=== PATIENT | female | born 1945 | race Caucasian/White ===

== ENCOUNTER 2020-07-22 14:18 | Inpatient (IN) ==
[2020-07-22] MEDS ORDERED: Furosemide 40 MG/4 ML VIAL IVP ONE (14:46)
[2020-07-22] MEDS ORDERED: Nitroglycerin 0.4 MG TAB.SUBL SL ONE (14:47)
[2020-07-22] MEDS: Furosemide 40 MG/4 ML VIAL ONE (14:55)
[2020-07-22 15:06] LABS: Basophils % 0.3 %; Eosinophils # 0.2 K/mcL (0.0-0.6); Eosinophils % 1.8 %; Hematocrit 43.6 % (35.3-44.9); Hemoglobin 14.3 g/dL (11.5-15.4); Immature Granulocytes % 0.3 % (0-4); Lymphocytes # 3.3 K/mcL (0.6-4.6); Lymphocytes % 28.7 %; Mean Corpuscular HGB Conc 32.8 g/dL (31.6-35.5); Mean Corpuscular Hemoglobin 27.6 pg (28.0-33.3); Mean Platelet Volume 10.8 fL (9.4-12.4); Monocytes # 1.1 K/mcL (0.0-1.3); Monocytes % 9.5 %; Neutrophils # 6.8 K/mcL (1.6-8.9); Platelet Count 305 K/mcL (140-400); Red Blood Count 5.19 M/mcL (3.82-4.97); Red Cell Distribution Width 13.4 % (11.5-14.5); Segmented Neutrophils % 59.4 %; White Blood Count 11.5 K/mcL (4.3-11.1)
[2020-07-22 15:18] LABS: BUN/Creatinine Ratio 27 (6-26); Blood Urea Nitrogen 17 mg/dL (8-23); Calcium 9.2 mg/dL (8.6-10.3); Carbon Dioxide 30 mEq/L (23-29); Chloride 94 mEq/L (98-107); Glucose 183 mg/dL (70-105); Osmolality,Calculated 284 (280-300); Potassium 3.3 mEq/L (3.5-5.1); Sodium 134 mEq/L (136-145); eGFR For African Americans > 60 (> 60); eGFR For Non-African Americans > 60 (> 60)
[2020-07-22 15:28] LABS: Troponin I 0.05 ng/mL (< 0.04)
[2020-07-22] MEDS ORDERED: Naloxone 0.4 MG/ML INJ IVP PRN (16:33)
[2020-07-23 01:36] LABS: Basophils % 0.2 %; Eosinophils # 0.1 K/mcL (0.0-0.6); Eosinophils % 1.2 %; Hematocrit 36.2 % (35.3-44.9); Hemoglobin 11.7 g/dL (11.5-15.4); Immature Granulocytes % 0.4 % (0-4); Lymphocytes # 1.6 K/mcL (0.6-4.6); Lymphocytes % 19.2 %; Mean Corpuscular HGB Conc 32.3 g/dL (31.6-35.5); Mean Corpuscular Hemoglobin 26.6 pg (28.0-33.3); Mean Corpuscular Volume 82.3 fL (83.0-100.0); Mean Platelet Volume 10.5 fL (9.4-12.4); Monocytes # 0.7 K/mcL (0.0-1.3); Monocytes % 8.8 %; Neutrophils # 5.8 K/mcL (1.6-8.9); Platelet Count 244 K/mcL (140-400); Red Cell Distribution Width 13.3 % (11.5-14.5); Segmented Neutrophils % 70.2 %; White Blood Count 8.2 K/mcL (4.3-11.1)
[2020-07-23 02:05] LABS: BUN/Creatinine Ratio 26 (6-26); Blood Urea Nitrogen 15 mg/dL (8-23); Calcium 8.7 mg/dL (8.6-10.3); Carbon Dioxide 36 mEq/L (23-29); Chloride 94 mEq/L (98-107); Glucose 108 mg/dL (70-105); Osmolality,Calculated 287 (280-300); Potassium 2.4 mEq/L (3.5-5.1); Sodium 138 mEq/L (136-145); eGFR For African Americans > 60 (> 60); eGFR For Non-African Americans > 60 (> 60)
[2020-07-23] MEDS ORDERED: Potassium Chloride 40 MEQ, Lidocaine 1% 2 ML in 0.9 % Sodium Chloride 500 ML IVPB ONE ×2 (05:45→21:45)
[2020-07-23] MEDS: Furosemide 40 MG/4 ML VIAL IVP SCH (08:24)
[2020-07-23] MEDS: Spironolactone 25 MG TABLET PO SCH (08:24)
[2020-07-23] MEDS ORDERED: Morphine Sulfate Oral CONC 10 MG/0.5 ML ORAL.SYG SL ONE (11:01)
[2020-07-23] MEDS ORDERED: Morphine Sulfate 2 MG/ML SYRINGE IVP ONE (12:09)
[2020-07-23] MEDS: *HR* LORazepam Oral Conc 2 MG/ML SL PRN ×2 (12:38→16:31)
[2020-07-23 18:57] LABS: BUN/Creatinine Ratio 26 (6-26); Blood Urea Nitrogen 15 mg/dL (8-23); Calcium 8.5 mg/dL (8.6-10.3); Carbon Dioxide 34 mEq/L (23-29); Chloride 92 mEq/L (98-107); Glucose 167 mg/dL (70-105); Osmolality,Calculated 285 (280-300); Potassium 3.2 mEq/L (3.5-5.1); Sodium 135 mEq/L (136-145); eGFR For African Americans > 60 (> 60); eGFR For Non-African Americans > 60 (> 60)
[2020-07-24 01:00] LABS: Basophils % 0.4 %; Eosinophils # 0.2 K/mcL (0.0-0.6); Eosinophils % 2.1 %; Hematocrit 34.3 % (35.3-44.9); Hemoglobin 11.2 g/dL (11.5-15.4); Immature Granulocytes % 0.3 % (0-4); Lymphocytes # 1.5 K/mcL (0.6-4.6); Lymphocytes % 18.3 %; Mean Corpuscular HGB Conc 32.7 g/dL (31.6-35.5); Mean Corpuscular Hemoglobin 27.4 pg (28.0-33.3); Mean Corpuscular Volume 83.9 fL (83.0-100.0); Mean Platelet Volume 10.4 fL (9.4-12.4); Monocytes # 0.8 K/mcL (0.0-1.3); Monocytes % 10.2 %; Neutrophils # 5.4 K/mcL (1.6-8.9); Platelet Count 199 K/mcL (140-400); Red Blood Count 4.09 M/mcL (3.82-4.97); Red Cell Distribution Width 13.2 % (11.5-14.5); Segmented Neutrophils % 68.7 %; White Blood Count 7.9 K/mcL (4.3-11.1)
[2020-07-24 01:22] LABS: BUN/Creatinine Ratio 29 (6-26); Blood Urea Nitrogen 16 mg/dL (8-23); Carbon Dioxide 37 mEq/L (23-29); Chloride 95 mEq/L (98-107); Glucose 125 mg/dL (70-105); Osmolality,Calculated 287 (280-300); Potassium 3.1 mEq/L (3.5-5.1); Sodium 137 mEq/L (136-145); eGFR For African Americans > 60 (> 60); eGFR For Non-African Americans > 60 (> 60)
[2020-07-24] MEDS ORDERED: *HR* Enoxaparin 40 MG/0.4 ML SYRINGE SQ SCH (07:00)
[2020-07-24] MEDS: Furosemide 40 MG/4 ML VIAL IVP SCH (08:12)
[2020-07-24] MEDS: Spironolactone 25 MG TABLET PO SCH (08:12)
[2020-07-24] MEDS: *HR* LORazepam Oral Conc 2 MG/ML SL PRN (21:29)
[2020-07-25] MEDS: *HR* LORazepam Oral Conc 2 MG/ML SL PRN ×2 (07:41→21:14)
[2020-07-25] MEDS: Furosemide 40 MG TABLET PO SCH (11:17)
[2020-07-25] MEDS: Morphine Sulfate Oral CONC 10 MG/0.5 ML ORAL.SYG SL PRN (11:18)
[2020-07-25] MEDS: Spironolactone 25 MG TABLET PO SCH (11:18)
[2020-07-26] MEDS: Spironolactone 25 MG TABLET PO SCH ×2 (09:22→09:40)
[2020-07-26] MEDS: Furosemide 40 MG TABLET PO SCH ×2 (09:22→09:41)
[2020-07-26] MEDS: *HR* LORazepam Oral Conc 2 MG/ML SL PRN ×2 (09:43→18:30)
[2020-07-27] MEDS: *HR* LORazepam Oral Conc 2 MG/ML SL PRN ×2 (00:05→20:55)
[2020-07-27] MEDS: Morphine Sulfate Oral CONC 10 MG/0.5 ML ORAL.SYG SL PRN (00:05)
[2020-07-27] MEDS: Furosemide 40 MG TABLET PO SCH (13:27)
[2020-07-27] MEDS: Spironolactone 25 MG TABLET PO SCH (13:27)
[2020-07-27] MEDS ORDERED: Menthol 9.1 MG LOZENGE PO PRN (21:06)
[2020-07-28] MEDS: *HR* LORazepam Oral Conc 2 MG/ML SL PRN ×3 (01:14→20:30)
[2020-07-28] MEDS ORDERED: *HR* LORazepam 1 MG TABLET SL STA (08:12)
[2020-07-28] MEDS: Morphine Sulfate Oral CONC 10 MG/0.5 ML ORAL.SYG SL PRN (08:56)
[2020-07-28] MEDS: Spironolactone 25 MG TABLET PO SCH (08:56)
[2020-07-28] MEDS: Furosemide 40 MG TABLET PO SCH (08:57)
[2020-07-28 20:38] VITALS: BP 136/95
== END 2020-07-28 20:55 | disposition hospice, home (50) | DRG 291 ==
LOC: 2NNU 14:18 → EMEROOARM 14:18 → SUATTDRO 18:09 → 2NNU 18:30 → 2ANU 07-24 14:23
PROVIDERS: ADMIT Internal Medicine; ATTEND General Practice